=== PATIENT | male | born 1960 | race Caucasian/White ===

== ENCOUNTER 2022-02-20 10:25 | Day surgery (SDC) | payer BC ==
[~2022-02-20] VITALS: Ht 188 cm; Wt 95.2 kg
[2022-02-20] VITALS (11 sets, daily range): BP systolic 130–168; BP diastolic 76–106; PULSE 59–70; TEMP 97.6
[2022-02-20 11:04] LABS: HEMATOCRIT 45.7 % (42.0-52.0); HEMOGLOBIN 15.6 g/dl (13.5-18.0); MEAN CELL VOLUME 85 fl (80.0-100.0); MEAN CORPUSCULAR HEMOGLOBIN 29 pg (27-31); MEAN CORPUSCULAR HGB CONC 34 g/dl (33.0-37.0); MEAN PLATELET VOLUME 10.5 fl (7.4-10.4); PLATELET COUNT 287 K/mm3 (130-400); RED BLOOD COUNT 5.38 M/mm3 (4.20-5.60); REDCELL DISTRIBUTION WIDTH-CV 13.8 % (11.5-14.5)
[2022-02-20 11:11] LABS: PROTHROMBIN TIME 11.2 SECONDS (9.7-12.8)
[2022-02-20 11:13] LABS: PARTIAL THROMBOPLASTIN TIME 26.4 SECONDS (26.0-37.0)
--- NOTE | 2022-02-20 11:16 | NUR ---
SEE MERGE FOR ALL MEDICATION ADMINISTRATION TIMES/DOSAGES AND INTRA/POST PROCEDURE SEDATION ASSESSMENTS. PRE PROCEDURE ASSESSMENT COMPLETED IN [facility]. SEE MERGE FOR INITIAL BASELINE VITALS.
[2022-02-20 11:17] LABS: CALCIUM 9.6 mg/dL (8.4-10.2); CREATININE, serum 1.02 mg/dL (0.72-1.25)
[2022-02-20] MEDS ORDERED: LOFIBRA160 MG PO (11:42)
[2022-02-20] MEDS ORDERED: COZAAR 50MG50 MG/TAB PO (11:44)
[2022-02-20] MEDS ORDERED: PREVACID 30MG30 M1 PO (11:45)
[2022-02-20] MEDS ORDERED: NASONEX SPRAY17 GM NS (11:46)
[2022-02-20] MEDS ORDERED: DALIRESP500 MCG PO (11:46)
[2022-02-20] MEDS ORDERED: OMEGA-3 1000 MG1 CAP PO (11:47)
[2022-02-20] MEDS ORDERED: CIALIS5 MG PO (11:48)
--- NOTE | 2022-02-20 16:57 | NUR ---
1615 air completely removed from RR, no bleeding noted. Unhooked from monitors, RR removed, replaced with 4x4 gauze, coband, wrist band. Discussed discharge info with patient and his , both verbalized understanding, patient signed. Patient changed into clothing, escorted to patient entrance via wheelchair.
== END 2022-02-20 17:00 | disposition left against medical advice (07) ==
LOC: COL.CAR 10:25
PROVIDERS: Internal Medicine Cardiovascular Disease
DX: R07.89 Other chest pain (principal); R06.09 Other forms of dyspnea; R06.02 Shortness of breath; K21.9 Gastro-esophageal reflux disease without esophagitis; I10 Essential (primary) hypertension; E78.5 Hyperlipidemia, unspecified; G47.33 Obstructive sleep apnea (adult) (pediatric); F41.9 Anxiety disorder, unspecified; Z79.899 Other long term (current) drug therapy; Z87.891 Personal history of nicotine dependence; Z99.89 Dependence on other enabling machines and devices
CPT/HCPCS: J1644; J2250; J3010; J7030; Q9967